=== PATIENT | male | born 1950 ===

== ENCOUNTER 2022-12-24 16:20 | Emergency (ER) | payer MEDICARE, OTHER, SELFPAY ==
[2022-12-24] VITALS (13 sets, daily range): BP systolic 132–159; BP diastolic 71–84; PULSE 60–96; RESP 15–27; TEMP 36.4–36.6; O2SAT 94–99; BMI 26.9; BMI 59.6
--- NOTE | 2022-12-24 16:32 | DI.RAD.S_ITS ---
PROCEDURE: XR CHEST 2V INDICATIONS: chest pain TECHNIQUE: 2 views of the chest were acquired. COMPARISON: None. FINDINGS: Surgical changes and devices: Dual lead left-sided transvenous pacemaker.. Lungs and pleura: Right infrahilar alveolar opacity. No pleural effusion or pneumothorax. Mediastinum: Mild cardiomegaly. No central venous congestion. Bones and chest wall: No suspicious bony abnormalities. Soft tissues appear unremarkable. IMPRESSION: 1. Hazy opacity in the right lower lung suggesting pneumonia. No pleural effusion. 2. Mild cardiomegaly. Dictated by: Charline Waite M.D. on 12/24/2022 at 17:28 Approved by: Charline Waite M.D. on 12/24/2022 at 17:40
[2022-12-24 16:54] LABS: Add Manual Diff / Slide Review NO; Basophils Absolute Auto 100 /uL (0-100); Basophils Percent Auto 0.9 % (0-2); Eosinophils Absolute Auto 100 /uL (0-450); Eosinophils Percent Auto 1.8 % (2-4); Hematocrit 41.5 % (41-53); Hemoglobin 14.2 g/dL (13.5-17.5); Lymphocytes Absolute Auto 1400 /uL (1100-4500); Lymphocytes Percent Auto 22.6 % (25-40); Mean Corpuscular HGB Conc 34.1 % (30-36); Mean Corpuscular Hemoglobin 31.6 PG (26-34); Mean Corpuscular Volume 92.7 fL (80-100); Monocytes Absolute Auto 700 /uL (0-900); Neutrophils Absolute Auto 3900 /uL (1500-7000); Neutrophils Percent Auto 62.7 % (50-75); Platelet Count 202 X10^3/uL (150-400); Red Blood Cell Count 4.48 X10^6/uL (4.5-5.9); White Blood Cell Count 6.2 X10^3/uL (4.5-11.0)
[2022-12-24 17:01] LABS: Alanine Aminotransferase 25 IU/L (<50); Albumin Globulin Ratio 1.6 (1.0-2.8); Alkaline Phosphatase 69 U/L (38-126); Aspartate Aminotransferase 27 IU/L (17-59); BUN Creatinine Ratio 18.2 (6-22); Bilirubin Total 0.6 mg/dL (0.2-1.3); Blood Urea Nitrogen 18 mg/dL (9-20); Calcium 9.4 mg/dL (8.4-10.2); Carbon Dioxide 26 mmol/L (22-32); Chloride 108 mmol/L (98-107); Creatine Kinase 84 U/L (55-170); Estimated Glomerular Filt Rate > 60 mL/min (>60); Globulin 2.5 g/dL (1.7-4.1); Glucose 103 mg/dL (80-110); HEMOLYSIS < 15 (0-50); Lipase 86 U/L (23-300); Magnesium 2.4 mg/dL (1.6-2.3); Potassium 3.6 mmol/L (3.4-5.1); Sodium 141 mmol/L (137-145); Total Protein 6.5 g/dL (6.3-8.2)
[2022-12-24 17:12] LABS: Troponin I < 0.012 ng/mL (0.01-0.034)
--- NOTE | 2022-12-24 17:29 | ED.GENADULT ---
HPI - General Adult <Hodan Falcon PA-C - Last Filed: 12/24/22 19:20> General Chief complaint: Chest Pain Stated complaint: chest pain Time Seen by Provider: 12/24/22 16:32 Source: patient and EMS Mode of arrival: EMS History of Present Illness HPI narrative: 72-year-old male with no reported past medical history brought in by EMS for an episode of lightheadedness that occurred just prior to arrival. Patient lives in a long term, is at baseline confused. Patient complained of feeling lightheadedness when he went from sitting to standing, had 1 episode of this, after which his lightheadedness resolved. Patient also complained to the nurses that he felt chest pain and shortness of breath. Patient is not an accurate historian, given his dementia/confusion. Patient denies any other symptoms. Related Data Previous Rx's Medication Instructions Recorded azithromycin 250 mg tablet See Rx Instructions PO .COMPLEX #6 12/24/22 (Zithromax Z-Vishal) tabs Review of Systems <Hodan Falcon PA-C - Last Filed: 12/24/22 19:20> Review of Systems ROS Unobtainable: All systems reviewed & are unremarkable except as noted in HPI and below and Unobtainable due to mental condition Constitutional Constitutional: Denies chills, Denies fatigue, Denies fever(s), Denies frequent falls, Denies lethargy and Denies weakness Eyes Eyes: Denies change in vision, Denies eye discharge, Denies irritation and Denies loss of vision ENT Ears, Nose, Mouth, and Throat: Denies change in voice, Denies dizziness, Denies neck pain, Denies sore throat and Denies throat swelling Cardiovascular Cardiovascular: Denies chest pain, Denies irregular heart rhythm, Reports lightheadedness, Denies palpitations, Denies dyspnea, Denies dyspnea on exertion and Denies orthopnea Respiratory Respiratory: Denies cough, Denies dyspnea, Denies dyspnea on exertion and Denies wheezing Gastrointestinal Gastrointestinal: Denies abdominal pain, Denies change in bowel habits, Denies diarrhea, Denies nausea and Denies vomiting Genitourinary Genitourinary: Denies hematuria, Denies flank pain, Denies urinary incontinence and Denies urinary urgency Musculoskeletal Musculoskeletal: Denies back pain, Denies muscle weakness, Denies neck pain, Denies numbness and Denies tingling Integumentary/Breasts Skin/Breast: Denies pruritus, Denies erythema, Denies rash and Denies wounds Neurologic Neurologic: Denies behavioral changes, Denies confusion, Denies dizziness, Denies frequent falls, Denies loss of vision, Denies numbness, Denies tingling and Denies weakness Psychiatric Psychiatric: Denies anxiety, Denies behavioral changes, Denies confusion, Denies depression, Denies homicidal ideation and Denies suicidal ideation Endocrine Endocrine: Denies fatigue, Denies flushing and Denies palpitations Hematologic/Lymphatic Hematologic/Lymphatic: Denies easy bruising Allergic/Immunologic Allergic/Immunologic: Denies urticaria, Denies throat swelling and Denies wheezing Patient History <Hodan Falcon PA-C - Last Filed: 12/24/22 19:20> Social History Smoking Status: Never smoker Smoking Status: Never smoker alcohol intake frequency: 0-2 drinks per day Alcohol type: beer Substance Use Type: does not use Exam <Hodan Falcon PA-C - Last Filed: 12/24/22 19:20> Narrative Exam Narrative: Const General:?cooperative, healthy appearing and comfortable [facility] Head:?normal to inspection Ears:?hearing grossly normal bilaterally Nose:?external nose normal Face and sinus:?normal facial exam and sinuses nontender Mouth:?oral mucosae normal Throat:?posterior oropharynx normal Eyes General:?appearance normal, both eyes and all related structures Neck Neck:?normal visual inspection and no lymphadenopathy noted Resp Effort & Inspection:?normal respiratory effort Auscultation:?clear to auscultation bilaterally Cardio Rate:?regular rate Rhythm:?regular rhythm Neuro General:?patient alert, patient awake and patient oriented x3 Initial Vital Signs Initial Vital Signs: Vital Signs Pulse Rate 61 12/24/22 16:13 Pulse Oximetry 99 12/24/22 16:13 <Yvonne Moscoso DO - Last Filed: 12/25/22 08:27> Initial Vital Signs Initial Vital Signs: Vital Signs Pulse Rate 61 12/24/22 16:13 Pulse Oximetry 99 12/24/22 16:13 Course <Hodan Falcon PA-C - Last Filed: 12/24/22 19:20> Orders Ordered: ED Orders 12/24/22 16:17 CBC Auto Diff [Complete Blood Count AUTO DIFF] Stat CMP [Comprehensive Metabolic Panel] Stat Lipase Stat Magnesium Stat Troponin & CK Cardiac Panel Stat 12/24/22 16:32 CXR [XR chest 2V] Stat EKG-12 Lead Stat 12/24/22 18:28 Troponin & CK Cardiac Panel Stat Vital Signs Vital signs: Vital Signs - 8 hr 12/24/22 16:41 12/24/22 17:33 12/24/22 16:13 Temperature 97.6 F Pulse Rate 64 61 Pulse Rate [Orthostatic Lying] 60 Pulse Rate [Orthostatic Sitting] 61 Pulse Rate [Orthostatic Standing] 66 Respiratory Rate 16 Blood Pressure 137/76 Blood Pressure [Orthostatic Lying] 132/74 Blood Pressure [Orthostatic Sitting] 141/75 H Blood Pressure [Orthostatic Standing] 159/77 H Pulse Oximetry 96 99 Oxygen Delivery Method Room Air 12/24/22 16:15 12/24/22 16:15 12/24/22 16:30 Temperature Pulse Rate 60 Pulse Rate [Orthostatic Lying] Pulse Rate [Orthostatic Sitting] Pulse Rate [Orthostatic Standing] Respiratory Rate 27 H Blood Pressure 144/71 H 137/76 Blood Pressure [Orthostatic Lying] Blood Pressure [Orthostatic Sitting] Blood Pressure [Orthostatic Standing] Pulse Oximetry 99 Oxygen Delivery Method 12/24/22 16:30 12/24/22 17:03 12/24/22 17:05 Temperature Pulse Rate 60 64 61 Pulse Rate [Orthostatic Lying] Pulse Rate [Orthostatic Sitting] Pulse Rate [Orthostatic Standing] Respiratory Rate 15 21 Blood Pressure Blood Pressure [Orthostatic Lying] Blood Pressure [Orthostatic Sitting] Blood Pressure [Orthostatic Standing] Pulse Oximetry 94 97 97 Oxygen Delivery Method 12/24/22 17:05 12/24/22 17:25 12/24/22 17:25 Temperature Pulse Rate 64 Pulse Rate [Orthostatic Lying] Pulse Rate [Orthostatic Sitting] Pulse Rate [Orthostatic Standing] Respiratory Rate Blood Pressure 153/82 H 132/74 Blood Pressure [Orthostatic Lying] Blood Pressure [Orthostatic Sitting] Blood Pressure [Orthostatic Standing] Pulse Oximetry 96 Oxygen Delivery Method 12/24/22 17:27 12/24/22 17:27 12/24/22 17:30 Temperature Pulse Rate 61 Pulse Rate [Orthostatic Lying] Pulse Rate [Orthostatic Sitting] Pulse Rate [Orthostatic Standing] Respiratory Rate Blood Pressure 141/75 H 159/77 H Blood Pressure [Orthostatic Lying] Blood Pressure [Orthostatic Sitting] Blood Pressure [Orthostatic Standing] Pulse Oximetry 98 Oxygen Delivery Method 12/24/22 17:30 12/24/22 17:54 12/24/22 17:59 Temperature Pulse Rate 65 96 H Pulse Rate [Orthostatic Lying] Pulse Rate [Orthostatic Sitting] Pulse Rate [Orthostatic Standing] Respiratory Rate Blood Pressure 156/84 H Blood Pressure [Orthostatic Lying] Blood Pressure [Orthostatic Sitting] Blood Pressure [Orthostatic Standing] Pulse Oximetry 98 Oxygen Delivery Method <Yvonne Moscoso, DO - Last Filed: 12/25/22 08:27> Orders Ordered: ED Orders 12/24/22 16:17 CBC Auto Diff [Complete Blood Count AUTO DIFF] Stat CMP [Comprehensive Metabolic Panel] Stat Lipase Stat Magnesium Stat Troponin & CK Cardiac Panel Stat 12/24/22 16:32 CXR [XR chest 2V] Stat EKG-12 Lead Stat 12/24/22 18:28 Troponin & CK Cardiac Panel Stat Vital Signs Vital signs: Vital Signs - 8 hr 12/24/22 16:41 12/24/22 17:33 12/24/22 16:13 Temperature 97.6 F Pulse Rate 64 61 Pulse Rate [Orthostatic Lying] 60 Pulse Rate [Orthostatic Sitting] 61 Pulse Rate [Orthostatic Standing] 66 Respiratory Rate 16 Blood Pressure 137/76 Blood Pressure [Orthostatic Lying] 132/74 Blood Pressure [Orthostatic Sitting] 141/75 H Blood Pressure [Orthostatic Standing] 159/77 H Pulse Oximetry 96 99 Oxygen Delivery Method Room Air 12/24/22 16:15 12/24/22 16:15 12/24/22 16:30 Temperature Pulse Rate 60 Pulse Rate [Orthostatic Lying] Pulse Rate [Orthostatic Sitting] Pulse Rate [Orthostatic Standing] Respiratory Rate 27 H Blood Pressure 144/71 H 137/76 Blood Pressure [Orthostatic Lying] Blood Pressure [Orthostatic Sitting] Blood Pressure [Orthostatic Standing] Pulse Oximetry 99 Oxygen Delivery Method 12/24/22 16:30 12/24/22 17:03 12/24/22 17:05 Temperature Pulse Rate 60 64 61 Pulse Rate [Orthostatic Lying] Pulse Rate [Orthostatic Sitting] Pulse Rate [Orthostatic Standing] Respiratory Rate 15 21 Blood Pressure Blood Pressure [Orthostatic Lying] Blood Pressure [Orthostatic Sitting] Blood Pressure [Orthostatic Standing] Pulse Oximetry 94 97 97 Oxygen Delivery Method 12/24/22 17:05 12/24/22 17:25 12/24/22 17:25 Temperature Pulse Rate 64 Pulse Rate [Orthostatic Lying] Pulse Rate [Orthostatic Sitting] Pulse Rate [Orthostatic Standing] Respiratory Rate Blood Pressure 153/82 H 132/74 Blood Pressure [Orthostatic Lying] Blood Pressure [Orthostatic Sitting] Blood Pressure [Orthostatic Standing] Pulse Oximetry 96 Oxygen Delivery Method 12/24/22 17:27 12/24/22 17:27 12/24/22 17:30 Temperature Pulse Rate 61 Pulse Rate [Orthostatic Lying] Pulse Rate [Orthostatic Sitting] Pulse Rate [Orthostatic Standing] Respiratory Rate Blood Pressure 141/75 H 159/77 H Blood Pressure [Orthostatic Lying] Blood Pressure [Orthostatic Sitting] Blood Pressure [Orthostatic Standing] Pulse Oximetry 98 Oxygen Delivery Method 12/24/22 17:30 12/24/22 17:54 12/24/22 17:59 Temperature Pulse Rate 65 96 H Pulse Rate [Orthostatic Lying] Pulse Rate [Orthostatic Sitting] Pulse Rate [Orthostatic Standing] Respiratory Rate Blood Pressure 156/84 H Blood Pressure [Orthostatic Lying] Blood Pressure [Orthostatic Sitting] Blood Pressure [Orthostatic Standing] Pulse Oximetry 98 Oxygen Delivery Method Medical Decision Making <Hodan Falcon PA-C - Last Filed: 12/24/22 19:20> Lab Data 12/24/22 16:17 12/24/22 16:17 Labs: Lab Results 12/24/22 12/24/22 12/24/22 Range/Units 16:17 16:17 18:28 WBC 6.2 (4.5-11.0) X10^3/uL RBC 4.48 L (4.5-5.9) X10^6/uL Hgb 14.2 (13.5-17.5) g/dL Hct 41.5 (41-53) % MCV 92.7 (80-100) fL MCH 31.6 (26-34) PG MCHC 34.1 (30-36) % RDW 14.0 (11.6-14.8) % Plt Count 202 (150-400) X10^3/uL Neut % (Auto) 62.7 (50-75) % Lymph % (Auto) 22.6 L (25-40) % [place] % (Auto) 12.0 (3-14) % Eos % (Auto) 1.8 L (2-4) % Baso % (Auto) 0.9 (0-2) % Neut # (Auto) 3900 (3749-9845) /uL Lymph # (Auto) 1400 (3353-0035) /uL [place] # (Auto) 700 (0-900) /uL Eos # (Auto) 100 (0-450) /uL Baso # (Auto) 100 (0-100) /uL Sodium 141 (137-145) mmol/L Potassium 3.6 (3.4-5.1) mmol/L Chloride 108 H (98-107) mmol/L Carbon Dioxide 26 (22-32) mmol/L BUN 18 (9-20) mg/dL Creatinine 0.99 (0.66-1.25) mg/dL Estimated GFR > 60 (>60) mL/min BUN/Creatinine Ratio 18.2 (6-22) Glucose 103 (80-110) mg/dL Calcium 9.4 (8.4-10.2) mg/dL Magnesium 2.4 H (1.6-2.3) mg/dL Total Bilirubin 0.6 (0.2-1.3) mg/dL AST 27 (17-59) IU/L ALT 25 (<50) IU/L Alkaline Phosphatase 69 (38-126) U/L Total Creatine Kinase 84 86 (55-170) U/L Troponin I < 0.012 < 0.012 (0.01-0.034) ng/mL Total Protein 6.5 (6.3-8.2) g/dL Albumin 4.0 (3.5-5.0) g/dL Globulin 2.5 (1.7-4.1) g/dL Albumin/Globulin Ratio 1.6 (1.0-2.8) Lipase 86 (23-300) U/L [facility] Narrative Medical decision making narrative: 72-year-old male with no reported past medical history brought in by EMS for an episode of lightheadedness that occurred just prior to arrival. Given patient's mental condition, will rule out cardiac related etiology. Chest x-ray, EKG, troponin, labs were obtained. Labs within normal limits. Troponin within normal limits. EKG is normal sinus rhythm with no acute ST-T changes. Will repeat troponin. Patient is not orthostatic. Chest x-ray shows possible pneumonia. Will prescribe antibiotics. Troponin x2 within normal limits. ED return precautions discussed with patient. Patient verbalized understanding. Medical records reviewed: Yes <Yvonne Moscoso, - Last Filed: 12/25/22 08:27> Lab Data Labs: Lab Results 12/24/22 12/24/22 12/24/22 Range/Units 16:17 16:17 18:28 WBC 6.2 (4.5-11.0) X10^3/uL RBC 4.48 L (4.5-5.9) X10^6/uL Hgb 14.2 (13.5-17.5) g/dL Hct 41.5 (41-53) % MCV 92.7 (80-100) fL MCH 31.6 (26-34) PG MCHC 34.1 (30-36) % RDW 14.0 (11.6-14.8) % Plt Count 202 (150-400) X10^3/uL Neut % (Auto) 62.7 (50-75) % Lymph % (Auto) 22.6 L (25-40) % [place] % (Auto) 12.0 (3-14) % Eos % (Auto) 1.8 L (2-4) % Baso % (Auto) 0.9 (0-2) % Neut # (Auto) 3900 (6324-8709) /uL Lymph # (Auto) 1400 (3588-2652) /uL [place] # (Auto) 700 (0-900) /uL Eos # (Auto) 100 (0-450) /uL Baso # (Auto) 100 (0-100) /uL Sodium 141 (137-145) mmol/L Potassium 3.6 (3.4-5.1) mmol/L Chloride 108 H (98-107) mmol/L Carbon Dioxide 26 (22-32) mmol/L BUN 18 (9-20) mg/dL Creatinine 0.99 (0.66-1.25) mg/dL Estimated GFR > 60 (>60) mL/min BUN/Creatinine Ratio 18.2 (6-22) Glucose 103 (80-110) mg/dL Calcium 9.4 (8.4-10.2) mg/dL Magnesium 2.4 H (1.6-2.3) mg/dL Total Bilirubin 0.6 (0.2-1.3) mg/dL AST 27 (17-59) IU/L ALT 25 (<50) IU/L Alkaline Phosphatase 69 (38-126) U/L Total Creatine Kinase 84 86 (55-170) U/L Troponin I < 0.012 < 0.012 (0.01-0.034) ng/mL Total Protein 6.5 (6.3-8.2) g/dL Albumin 4.0 (3.5-5.0) g/dL Globulin 2.5 (1.7-4.1) g/dL Albumin/Globulin Ratio 1.6 (1.0-2.8) Lipase 86 (23-300) U/L ECG Data Interpretation: Dr. Moscoso- Sinus rhythm rate 63 ID interval 194 QRS 126 QTC 421 T-wave inversion noted in [address] elevations no priors to compare Discharge Plan Departure Patient Disposition: Home Clinical Impression: Pneumonia Instructions: DI for Pneumonia -- Adult Activity Restrictions/Additional Instructions: You were evaluated in the ED today for lightheadedness, chest pain, shortness of breath. Your labs, EKG were normal. Your chest x-ray does show pneumonia. You are being prescribed antibiotics for it. Please take it as prescribed. Please continue to stay well hydrated. Please follow-up with your dining car waiter/waitress as soon as possible. Please return to the ED if you have worsening symptoms, chest pain, shortness of breath. Prescriptions: New azithromycin [Zithromax Z-Vishal] 250 mg tablet See Rx Instructions .ROUTE .COMPLEX Qty: 6 0RF Rx Instructions: For 250 mg dose pack: take 500 mg today (day 1), then 250 mg for 4 days (days 2-5) Stand Alone Forms: Patient Portal/API <Yvonne Moscoso DO - Last Filed: 12/25/22 08:27> Cosign ED Attending Cosignature Attestation: I was immediately available in the department for consultation. Documentation has been reviewed.
[2022-12-24 18:51] LABS: Creatine Kinase 86 U/L (55-170)
[2022-12-24 19:04] LABS: Troponin I < 0.012 ng/mL (0.01-0.034)
== END 2022-12-24 23:54 | disposition home or self-care (01) ==
PROVIDERS: Emergency Provider Student in an Organized Health Care Education/Training Program
DX: J18.9 Pneumonia, unspecified organism (principal); R07.9 Chest pain, unspecified
CPT/HCPCS: 36415; 71046; 80053; 82550; 83690; 83735; 84484; 85025; 93005; 99283; 99284